=== PATIENT | female | born 1975 | race Hispanic/Latino ===

== ENCOUNTER → 2021-05-22 | Day surgery (SDC) | payer OTHER, SELFPAY ==
[~2021-05-22] MED LIST: Acetaminophen 500 MG TAB ONE; Acetaminophen 500 MG TAB PO SCH; diphenhydrAMINE 50 MG/ML VIAL IVP SCH; diphenhydrAMINE 50 MG/ML VIAL ONE
== END ==
LOC: CSHSDC/OP 07:40
PROVIDERS: ATTEND Family Medicine
DX: U07.1 COVID-19 (principal); Z23 Encounter for immunization
CPT/HCPCS: 96365; 96374; J1200; J3490; Q0244